=== PATIENT | male | born 1945 | race Caucasian/White ===

== ENCOUNTER 2023-07-25 10:50 | Emergency (ER) | payer MEDICARE, SELFPAY ==
[2023-07-25] VITALS (9 sets, daily range): BP systolic 149–185; BP diastolic 80–110; PULSE 57–67; RESP 20–30; TEMP 36.5; O2SAT 96–100
--- NOTE | ~2023-07-25 | XR_ITS ---
EXAMINATION: XR chest 2V DATE: 07/25/2023 11:15 INDICATION: Chest pain. Epigastric abdominal pain. TECHNIQUE: Frontal and lateral views of the chest were obtained. COMPARISON: None. FINDINGS: There is mild atelectasis at left lung base. No pleural effusion or pneumothorax. The heart size is normal. There is a large hiatal hernia. IMPRESSION: 1. Mild atelectasis at left lung base. 2. Large hiatal hernia. Reviewed, dictated and finalized at location A.
--- NOTE | 2023-07-25 10:51 | ECG_ITS ---
Measurements Intervals [place] Rate: 61 P: 42 MO: 173 QRS: 0 QRSD: 97 T: 27 QT: 419 QTc: 424 Interpretive Statements SINUS RHYTHM NO PREVIOUS ECG AVAILABLE FOR COMPARISON Electronically Signed On 07-26-2023 12:54:05 CDT by Gilbert Olivares M.D.
[2023-07-25] MEDS: ASPIRIN 81 MG CHEWABLE TABLET 324 MG PO (11:30)
[2023-07-25 11:43] LABS: Basophils Percent Auto 0.2 % (0.2-1.2); Eosinophils Absolute Auto 0.1 K/mm3 (0-0.3); Eosinophils Percent Auto 2.3 % (0-4.4); Hematocrit 45.6 % (42.0-52.0); Hemoglobin 14.7 g/dL (14.0-18.0); Immature Granulocyte Absolute 0.02 K/mm3 (0.00-0.031); Immature Granulocyte Percent A 0.4 % (0-0.5); Lymphocytes Absolute Auto 1.13 K/mm3 (0.9-3.2); Lymphocytes Percent Auto 21.6 % (18.3-44.2); Mean Corpuscular HGB Conc 32.2 g/dl (32-36); Mean Corpuscular Hemoglobin 30.9 pg (26-34); Mean Platelet Volume 10.4 fl (7.4-10.4); Monocytes Absolute Auto 0.5 K/mm3 (0.1-0.6); Monocytes Percent Auto 8.6 % (2.6-8.5); Neutrophils Absolute Auto 3.5 K/mm3 (1.3-6.7); Neutrophils Percent Auto 66.9 % (45.5-73.1); Platelet Count Result 151 k/mm3 (150-375); Red Blood Count 4.75 M/mm3 (4.6-6.20); Red Cell Distribution Width 14.3 % (11.5-14.5); White Blood Count 5.2 K/mm3 (4.5-10.0)
[2023-07-25 11:49] LABS: Alanine Aminotransferase 21 U/L (6-50); Albumin Level 4.5 g/dL (3.5-5.1); Alkaline Phosphatase 73 U/L (38-126); Anion Gap 9 mmol/L (8-16); Aspartate Amino Transferase 27 U/L (17-59); Bilirubin,Total 1.1 mg/dL (0.2-1.3); Blood Urea Nitrogen 20 mg/dL (9-20); Carbon Dioxide 27 mmol/L (22-30); Chloride 103 mmol/L (98-107); Estimated CRCL calculation 60 ml/min; Estimated Glomerular Filt Rate > 60; Glucose 120 mg/dL (65-110); Lipase 66 U/L (23-300); Potassium 3.6 mmol/L (3.4-5.0); Sodium 139 mmol/L (137-145)
[2023-07-25 11:53] LABS: Prothrombin Time 13.6 Seconds (11.1-14.7)
[2023-07-25 11:54] LABS: Partial Thromboplastin Time 26.7 SECONDS (22.3-36.8)
[2023-07-25 12:01] LABS: Troponin I < 0.012 ng/mL (0.000-0.034)
--- NOTE | 2023-07-25 12:11 | ED.GENADULT ---
HPI - General Adult General Chief complaint: Chest Pain Stated complaint: chest pain Time Seen by Provider: 07/25/23 11:28 History of Present Illness HPI narrative: 78-year-old male present emerged department for evaluation of epigastric pressure. Patient states this morning he did take his multiple medications had a couple coffee and a biscuit but shortly after eating the biscuits and gravy he started to have some fullness. Patient states he then started having some sweating associated with this. Patient then decided he needed to be seen at the emergency department. Upon arrival to the ED patient denies any current diaphoresis states he does feel improved but does still have some chest pressure. Patient does have a history of coronary artery disease and does have a stent in his LAD done in [place]. Related Data Allergies Allergy/AdvReac Type Severity Reaction Status Date / Time penicillin G Allergy Rash Verified 07/25/23 11:28 Review of Systems Review of Systems: All systems reviewed & are unremarkable except as noted in HPI and below Exam Narrative: APPEARANCE: Well appearing, no pain, no distress, well-nourished. HEAD: normocephalic, atraumatic. EYES: PERRLA/EOMI, conjunctivae clear. NOSE: Normal no drainage NECK: Supple. No adenopathy, no masses. RESPIRATORY: Airway patent, respirations nonlabored. Clear to auscultation bilaterally, no rales, rhonchi, wheezing. CARDIOVASCULAR: Regular rate and rhythm without murmurs rubs or gallops. ABDOMINAL: Soft, nontender, epigastric tenderness to palpation MUSCULOSKELETAL: Moves all extremities. Strength/ROM intact, No edema, No calf tenderness. NEURO: Alert. Cranial nerves II through XII intact. Grossly intact SKIN: Warm, dry. Normal Color Course Course Emergency Course: 78-year-old male present emerged department for evaluation of epigastric pain. Patient reports he did feel improved with a GI cocktail. Patient is afebrile and leukocytosis and a stable hemoglobin. Patient's creatinine bilirubin AST ALT alk phos lipase were within normal limits. Patient had normal serial troponins. Chest x-ray showed no acute cardiopulmonary abnormality. EKG showed normal sinus rhythm. On reexam patient has only minimal epigastric tenderness to palpation. Nonsurgical abdomen. Patient and guest were updated on the results of the work-up. All questions concerns were addressed. Patient was encouraged of close follow-up with his primary care physician and with GI. Vital Signs Vital signs: Vital Signs Temperature 97.7 F 07/25/23 11:06 Pulse Rate 61 07/25/23 11:06 Respiratory Rate 20 07/25/23 11:06 Blood Pressure 166/87 H 07/25/23 11:06 Pulse Oximetry 98 07/25/23 11:06 Oxygen Delivery Room Air 07/25/23 11:06 Temperature 97.7 F 07/25/23 11:06 Pulse Rate 67 07/25/23 14:45 Respiratory Rate 24 H 07/25/23 14:45 Blood Pressure 160/80 H 07/25/23 14:45 Pulse Oximetry 99 07/25/23 14:45 Oxygen Delivery Room Air 07/25/23 11:48 Medical Decision Making Differential Diagnosis Differential Diagnosis: ACS, gastroenteritis, pancreatitis Vital Signs Vital Signs: Vital Signs Temperature 97.7 F 07/25/23 11:06 Pulse Rate 61 07/25/23 11:06 Respiratory Rate 20 07/25/23 11:06 Blood Pressure 166/87 H 07/25/23 11:06 Pulse Oximetry 98 07/25/23 11:06 Oxygen Delivery Room Air 07/25/23 11:06 Temperature 97.7 F 07/25/23 11:06 Pulse Rate 67 07/25/23 14:45 Respiratory Rate 24 H 07/25/23 14:45 Blood Pressure 160/80 H 07/25/23 14:45 Pulse Oximetry 99 07/25/23 14:45 Oxygen Delivery Room Air 07/25/23 11:48 Lab Data Lab results reviewed: Yes I reviewed the patient's lab results. 07/25/23 11:27 07/25/23 11:27 Labs: Lab Results 07/25/23 07/25/23 Range/Units 11:27 14:00 WBC 5.2 (4.5-10.0) K/mm3 RBC 4.75 (4.6-6.20) M/mm3 Hgb 14.7 (14.0-18.0) g/dL Hct 45.6 (42.0-52.
[2023-07-25] MEDS: BELLADONNA ALK/PHENOB ELIX 10 ML, MAG HYDROX/ALUMINUM HYD/SIMETH 30 ML, LIDOCAINE HCL 2... PO (12:26)
[2023-07-25 14:32] LABS: Troponin I < 0.012 ng/mL (0.000-0.034)
== END 2023-07-25 15:03 | disposition home or self-care (01) ==
PROVIDERS: Emergency Provider Emergency Medicine
DX: R10.13 Epigastric pain (principal); I25.10 Atherosclerotic heart disease of native coronary artery without angina pectoris; Z95.5 Presence of coronary angioplasty implant and graft; K44.9 Diaphragmatic hernia without obstruction or gangrene
CPT/HCPCS: 36415; 71046; 80053; 83690; 84484; 85025; 85610; 85730; 93005; 99284; A9270